=== PATIENT | female | born 1935 | race Caucasian/White ===

== ENCOUNTER → 2016-10-08 | Outpatient (CLI) | payer MEDICARE ==
[~2016-10-08] MED LIST: ALEN70TA5 PO; AMLO10TA2 PO; B/P MED; BONE MED; CALC1TAB86 PO; CITA20TA9 PO; FLUTICASONE; LEVO50TA5 PO; LEVO88TA4 PO; MULT-82 PO; OMEP-110 PO; OXYC10TA32 PO; TRAZ100T15 PO; TRAZ50TA18 PO; ZOLP5TAB6 PO
== END | disposition home or self-care (01) ==
LOC: CFH 12:26
PROVIDERS: ATTEND Family Medicine
DX: Z13.820 Encounter for screening for osteoporosis (principal); M81.0 Age-related osteoporosis without current pathological fracture; M85.88 Other specified disorders of bone density and structure, other site
CPT/HCPCS: 77080